=== PATIENT | male | born 1965 | race Caucasian/White ===

== ENCOUNTER 2017-07-27 09:28 | Observation (INO) | payer BC, OTHER, SELFPAY ==
[2017-07-27] VITALS (11 sets, daily range): BP systolic 132–158; BP diastolic 43–95; PULSE 58–101; RESP 12–20; TEMP 36.7–37; O2SAT 94–98; BMI 35.6; BMI 34.4
--- NOTE | 2017-07-27 09:43 | EKG12_ITS ---
Test Reason : CP Blood Pressure : / mmHG Vent. Rate : 078 BPM Atrial Rate : 078 BPM P-R Int : 160 ms QRS Dur : 078 ms QT Int : 374 ms P-R-T Axes : 019 023 -16 degrees QTc Int : 426 ms Normal sinus rhythm Normal ECG Confirmed by REED SANCHEZ ([id number]), deputy editor in chief MIRNA SANABRIA ([id number]) on 08/09/2017 5:10:38 PM Referred By: KEEGAN/SONG Confirmed By:REED SANCHEZ
--- NOTE | 2017-07-27 09:43 | RAD_ITS ---
STUDY: X-RAY CHEST REASON FOR EXAM: Male, 52 years old. Chest pain TECHNIQUE: Single AP portable view of the chest. COMPARISON: None. FINDINGS: The lungs are clear and expanded. There is no demonstrated pleural abnormality. Normal size heart. Normal mediastinum and dylan. Normal visualized pulmonary arteries. Normal visualized aortic arch and descending thoracic aorta. Normal visualized thoracic spine. Normal visualized ribs, clavicles, and shoulders. There is no demonstrated abnormality of the visualized soft tissue structures of the upper abdomen. RAD/Chest 1 View (Portable) IMPRESSION: No acute disease is demonstrated. Electronically Signed: Delma Menezes MD at 10:05 EDT , Service support ,
--- NOTE | 2017-07-27 09:44 | ED.VISSUMM ---
- ER Visit Summary Date of Service: 07/27/17 Chief Complaint: Chest pain History of Present Illness: The patient is a 52 M presenting with chest pain. This started around 5 AM. He states he had woken up and when he rolled over he started to have chest pain in his mid chest. At its worst pain is 6 out of 10 currently 2 out of 10. He states it waxes and wanes. His pain is in his mid chest and goes to his back. He denies nausea, vomiting, diaphoresis. He has mild shortness of breath. He scheduled for a stress test this coming Wednesday due to episodes of dizziness at work that was ordered by his primary care physician. He is unsure if his mom had history of blood clot, no other DVT/PE risk factors. He is a previous smoker. Physical Examination: Vitals are stable. Patient is afebrile. Alert no acute distress. HEENT exam is unremarkable. Neck is supple. Lungs are clear and equal bilaterally. Heart is regular rate and rhythm. Abdomen is soft nontender nondistended. Extremities are unremarkable. Skin is warm and dry. No focal neurologic deficit. Remainder of exam is unremarkable. Emergency Department Course and Treatment: EKG is sinus rate of 78 with no acute ischemic changes. Patient was given aspirin. Chest x-ray shows no acute process. CBC, chemistries, d-dimer are unremarkable. Troponin is negative. Patient is pain-free on reevaluation. Will discuss with the hospitalist for observation. Disposition: Observation Impression: Chest pain This note was generated with [employer] dictation software. It may contain incorrect words, spelling, and punctuation that were not noted in review of the chart prior to signing ED Disposition - Plan for ED Patient: Disposition: Acute Care Hospital [facility] Chief Complaint: Chest Pain
--- NOTE | 2017-07-27 09:47 | ED.DCSUM_ITS ---
- ER Visit Summary Date of Service: 07/27/17 Chief Complaint: Chest pain History of Present Illness: The patient is a 52 M presenting with chest pain. This started around 5 AM. He states he had woken up and when he rolled over he started to have chest pain in his mid chest. At its worst pain is 6 out of 10 currently 2 out of 10. He states it waxes and wanes. His pain is in his mid chest and goes to his back. He denies nausea, vomiting, diaphoresis. He has mild shortness of breath. He scheduled for a stress test this coming Wednesday due to episodes of dizziness at work that was ordered by his primary care physician. He is unsure if his mom had history of blood clot, no other DVT/PE risk factors. He is a previous smoker. Physical Examination: Vitals are stable. Patient is afebrile. Alert no acute distress. HEENT exam is unremarkable. Neck is supple. Lungs are clear and equal bilaterally. Heart is regular rate and rhythm. Abdomen is soft nontender nondistended. Extremities are unremarkable. Skin is warm and dry. No focal neurologic deficit. Remainder of exam is unremarkable. Emergency Department Course and Treatment: EKG is sinus rate of 78 with no acute ischemic changes. Patient was given aspirin. Chest x-ray shows no acute process. CBC, chemistries, d-dimer are unremarkable. Troponin is negative. Patient is pain-free on reevaluation. Will discuss with the hospitalist for observation. Disposition: Observation Impression: Chest pain This note was generated with [employer] dictation software. It may contain incorrect words, spelling, and punctuation that were not noted in review of the chart prior to signing ED Disposition - Plan for ED Patient: Disposition: Acute Care Hospital [facility] Chief Complaint: Chest Pain
[2017-07-27 10:14] LABS: Absolute Lymphocyte Count 2.76 X10^3/ul (0.83-4.51); Absolute Neutrophil Count 4.5 X10^3/uL (2.0-7.7); Basophil# 0.02 X10^3/uL; Basophil% 0.3 % (0-1); Eosinophil# 0.22 X10^3/uL; Eosinophils% 2.8 % (0-5); Hematocrit 47.4 % (40-54); Hemoglobin 16.2 g/dl (13.0-16.5); Lymphocyte # 2.76 X10^3/ul (4.0); Lymphocyte % 34.6 % (19-41); Mean Corp Hgb Conc 34.2 g/gl (32-36); Mean Corpuscular Hgb 29.3 pg (27.0-32.0); Mean Corpuscular Volume 85.7 fL (80-94); Mean Platelet Vol. 9.6 fl (6.2-12.0); Monocyte# 0.51 X10^3/uL; Monocyte% 6.4 % (0-10); Neutrophil # 4.45 X10^3/uL (2.7-7.7); Neutrophil % 55.8 % (47-70); Platelet Count 236 K/mm3 (150-450); RBC Distribution Width CV 13.9 % (11.6-14.6); RBC Distribution Width SD 43.6 fl (35.1-43.9); Red Blood Count 5.53 M/mm3 (4.6-6.2)
[2017-07-27 10:22] LABS: POSITIVE COUNT NO; POSITIVE DIFFERENTIAL NO; POSITIVE MORPHOLOGY NO
[2017-07-27 10:27] LABS: Anion Gap 7 (5-15); BUN 14 mg/dL (7-18); BUN/Creat Ratio 15.6 RATIO (10-20); Calcium,Total 9.1 mg/dL (8.5-10.1); Chloride 109 mmol/L (98-107); EST Glomerular Filtration Rate 95 mL/min (>60); Est Glom Filt Rate - Afr Amer 115 mL/min (>60); Estimated Creatinine Clearance 103.42 ml/min; Glucose 143 mg/dL (74-106); Potassium 4.1 mmol/L (3.5-5.1); Sodium Level 140 mmol/L (136-145)
[2017-07-27 10:28] LABS: D-Dimer Quantitative (DVT/PE) < 0.27 FEU/ug/m (0.27-0.49)
--- NOTE | 2017-07-27 14:59 | PCM.HP.STD ---
History of Present Illness Date of Admission: 07/27/17 Chief Complaint: Chest pain The patient is a 52 year old M presented to the emergency room with midsternal chest pain which he rated as 6/10 at it was. His pain is worse with respiratory movements. He denies any shortness of breath, palpitations or rapid heartbeat.He scheduled for a stress test this coming Wednesday due to episodes of dizziness at work that was ordered by his primary care physician, he denies dizziness. His workup in the emergency room is essentially unremarkable , we are placing him in the hospital to rule out acute coronary syndrome and go from there. Past Medical History Allergies benzonatate [From [employer]] Allergy (Verified 07/27/17 09:32) Hives Home Medications: Ambulatory Orders Medication Instructions Recorded Aspirin [Adult Low Dose Aspirin EC] 81 mg PO DAILY 07/27/17 Loratadine [Claritin] 10 mg PO DAILY 07/27/17 Multivitamins,Therapeutic 1 tablet PO DAILY 07/27/17 [Multivitamin] Smoking Status: Former smoker Review of Systems Constitutional: Reports: Anorexia Comment: All Systems were reviewed with pertinent positives mentioned in the HPI above. VTE Information - Inpt Only VTE Present on Admission: No VTE Mechan Device Prophylaxis: SCD's VTE Pharm Prophylaxis ordered?: No - Physical Exam General: Alert, Oriented x3 Neck: No JVD Lungs: Clear to auscultation, No rales Cardiovascular: Normal S1, Normal S2 Abdomen: Bowel Sounds Present, Soft, Non Tender Extremities: No clubbing, Clubbing Musculoskeletal: No Tenderness to Palpation of Joints or Extremities Vital Signs Temp Pulse Resp BP Pulse Ox 98.0 F 72 18 140/86 H 96 07/27/17 12:18 07/27/17 12:39 07/27/17 12:18 07/27/17 12:19 07/27/17 12:18 Oxygen Delivery Method Room Air Weight: 112 kg Body Mass Index (BMI) 34.4 Laboratory Tests Past 24 Hrs 07/27/17 13:15 Troponin I < 0.015 Assessment/Plan 1. Chest pain; will obtain serial cardiac enzymes and EKGs to rule out acute coronary syndrome, assuming negative cardiac enzymes we will schedule for a stress test in the morning. 2. hyperglycemia; will obtain fasting glucose in a.m. 3. Early ambulation for DVT prophylaxis. Code Visit OBSV E&M: 09172 Initial observation care L2
[2017-07-28] VITALS (8 sets, daily range): BP systolic 108–162; BP diastolic 62–89; PULSE 75–93; RESP 16–18; TEMP 36.4–36.6; O2SAT 96–98
[2017-07-28] MEDS: Aspirin E.C. 81 MG Tablet PO (05:48)
[2017-07-28] MEDS: 0.9% NaCl Peripheral Flush Adult/Peds IV (05:51)
[2017-07-28 06:02] LABS: Absolute Neutrophil Count 4.5 X10^3/uL (2.0-7.7); Basophil# 0.04 X10^3/uL; Basophil% 0.4 % (0-1); Eosinophil# 0.37 X10^3/uL; Hematocrit 46.4 % (40-54); Lymphocyte % 38.2 % (19-41); Mean Corp Hgb Conc 34.5 g/gl (32-36); Mean Corpuscular Hgb 29.4 pg (27.0-32.0); Mean Corpuscular Volume 85.3 fL (80-94); Monocyte# 0.72 X10^3/uL; Monocyte% 7.9 % (0-10); Neutrophil # 4.52 X10^3/uL (2.7-7.7); Neutrophil % 49.3 % (47-70); Platelet Count 279 K/mm3 (150-450); RBC Distribution Width CV 14.2 % (11.6-14.6); RBC Distribution Width SD 44.6 fl (35.1-43.9); Red Blood Count 5.44 M/mm3 (4.6-6.2); White Blood Count 9.2 K/mm3 (4.4-11.0)
[2017-07-28 06:06] LABS: Prothrombin Time (Protime)PT. 13.4 SECONDS (11.7-14.9)
[2017-07-28 06:07] LABS: Partial Thromboplast Time 27.6 Seconds (24.1-36.2)
[2017-07-28 06:10] LABS: POSITIVE COUNT NO; POSITIVE DIFFERENTIAL NO; POSITIVE MORPHOLOGY NO
[2017-07-28 06:22] LABS: Anion Gap 8 (5-15); BUN 15 mg/dL (7-18); BUN/Creat Ratio 16.8 RATIO (10-20); Calcium,Total 8.3 mg/dL (8.5-10.1); Chloride 108 mmol/L (98-107); EST Glomerular Filtration Rate 95 mL/min (>60); Est Glom Filt Rate - Afr Amer 115 mL/min (>60); Estimated Creatinine Clearance 103.42 ml/min; Glucose 117 mg/dL (74-106); Sodium Level 140 mmol/L (136-145)
--- NOTE | 2017-07-28 10:24 | STRESSREP ---
Stress Test Report Date: 07/28/2017 Procedure: Exercise tolerance test/imaging study Indications: Chest pain Consent: Per the patient Procedure: The patient exercised on a Roberth protocol for 5 minutes 30 seconds completing Stage I and 2 minutes 30 seconds of Stage II achieving a peak heart rate of 150 bpm (88 % predicted maximal heart rate) with a peak blood pressure 190/96 mmHg and a peak MET capacity of 7 METs. The baseline ECG demonstrated normal sinus rhythm. The peak exercise ECG demonstrated no obvious ECG changes. There were no cardiac dysrhythmias pretest, during exercise, or recovery. The functional capacity was considered average. There was no complaint of chest discomfort during exercise or recovery. The examination was discontinued secondary to dyspnea. Impression: 1. Technically adequate (percent predicted maximal heart rate greater than 85%) exercise tolerance test 2. Peak exercise ECG with no obvious ECG changes 3. Were no cardiac dysrhythmias pretest, during exercise, or recovery. 4. Nuclear images pending Myocardial perfusion imaging study: Technique: The patient was injected with 14.7 mCi of technetium 99m Cardiolite and subsequently rest SPECT Cardiolite nuclear imaging was obtained in the horizontal long, vertical long, and short axis views. The patient exercised on a Roberth protocol for 5 minutes and 30 seconds completing Stage I and 2 minutes 30 seconds of Stage II achieving a peak heart rate of 150 bpm (88 % predicted maximal heart rate) with a peak blood pressure 190/96 mmHg and a peak MET capacity of 7 METs. The patient was injected with 44.8 mCi of technetium 99m Cardiolite and subsequently stress SPECT Cardiolite nuclear imaging was obtained in the horizontal long, vertical long, and short axis views. A gated Cardiolite study at peak stress was obtained. Interpretation: Rest and stress SPECT Cardiolite nuclear imaging status post realignment, normalization, and attenuation correction, demonstrates the appearance of relative uniform tracer uptake and myocardial perfusion appearing within normal limits. There is end systolic thickening and brightening. The gated Cardiolite study demonstrates myocardial thickening and inward wall motion. The reported LVEF is in the 73 %. Impression: 1. Rest and stress SPECT Cardiolite nuclear imaging demonstrate relative uniform tracer uptake and myocardial perfusion appearing within normal limits. 2. The gated Cardiolite study reports an LVEF of 73 %. This note was generated with plistaation software. It may contain incorrect words, spelling, and punctuation that were not noted in checking the note before signing.
--- NOTE | 2017-07-28 10:34 | STRESSREP_ITS ---
Stress Test Report Date: 07/28/2017 Procedure: Exercise tolerance test/imaging study Indications: Chest pain Consent: Per the patient Procedure: The patient exercised on a Roberth protocol for 5 minutes 30 seconds completing Stage I and 2 minutes 30 seconds of Stage II achieving a peak heart rate of 150 bpm (88 % predicted maximal heart rate) with a peak blood pressure 190/96 mmHg and a peak MET capacity of 7 METs. The baseline ECG demonstrated normal sinus rhythm. The peak exercise ECG demonstrated no obvious ECG changes. There were no cardiac dysrhythmias pretest, during exercise, or recovery. The functional capacity was considered average. There was no complaint of chest discomfort during exercise or recovery. The examination was discontinued secondary to dyspnea. Impression: 1. Technically adequate (percent predicted maximal heart rate greater than 85% ) exercise tolerance test 2. Peak exercise ECG with no obvious ECG changes 3. Were no cardiac dysrhythmias pretest, during exercise, or recovery. 4. Nuclear images pending Myocardial perfusion imaging study: Technique: The patient was injected with 14.7 mCi of technetium 99m Cardiolite and subsequently rest SPECT Cardiolite nuclear imaging was obtained in the horizontal long, vertical long, and short axis views. The patient exercised on a Roberth protocol for 5 minutes and 30 seconds completing Stage I and 2 minutes 30 seconds of Stage II achieving a peak heart rate of 150 bpm (88 % predicted maximal heart rate) with a peak blood pressure 190/96 mmHg and a peak MET capacity of 7 METs. The patient was injected with 44.8 mCi of technetium 99m Cardiolite and subsequently stress SPECT Cardiolite nuclear imaging was obtained in the horizontal long, vertical long, and short axis views. A gated Cardiolite study at peak stress was obtained. Interpretation: Rest and stress SPECT Cardiolite nuclear imaging status post realignment, normalization, and attenuation correction, demonstrates the appearance of relative uniform tracer uptake and myocardial perfusion appearing within normal limits. There is end systolic thickening and brightening. The gated Cardiolite study demonstrates myocardial thickening and inward wall motion. The reported LVEF is in the 73 %. Impression: 1. Rest and stress SPECT Cardiolite nuclear imaging demonstrate relative uniform tracer uptake and myocardial perfusion appearing within normal limits. 2. The gated Cardiolite study reports an LVEF of 73 %. This note was generated with [employer] software. It may contain incorrect words, spelling, and punctuation that were not noted in checking the note before signing.
--- NOTE | 2017-07-28 12:32 | MRI_ITS ---
STUDY: MRI BRAIN WITHOUT CONTRAST REASON FOR EXAM: Male, 52 years old. Vertigo and dizziness TECHNIQUE: Standardized multiplanar fat and water weighted pulse sequences were obtained. COMPARISON: None. FINDINGS: Normal size of the ventricles and extra-axial spaces for the patient's age. Minor periventricular white matter ischemic changes without mass effect or restricted diffusion.. Normal bilateral basal ganglia. Normal thalami. There is no extra-axial fluid accumulation. Normal flow voids within the major intracranial circulation suggesting patency by spin echo criteria. Normal sella turcica, pituitary gland, infundibular stalk, optic chiasm and hypothalamus. Normal tectal plate and pineal gland. Normal midbrain, franco and medulla. Normal cerebellum. Normal basal cisterns. Normal bilateral temporal bones. Normal bilateral internal auditory canals. No demonstrated orbital abnormality, within the constraints of a routine brain study. Normal visualized paranasal sinuses. Normal calvarium and skull base. Normal visualized soft tissue structures. Normal visualized upper cervical spine. MRI/Brain without Contrast IMPRESSION: Minor periventricular white matter ischemic changes without evidence for acute infarct. Electronically Signed: Troy Jose MD at 16:20 EDT , Service support ,
--- NOTE | 2017-07-28 12:34 | MRI_ITS ---
STUDY: MRA NECK WITHOUT CONTRAST REASON FOR EXAM: Male, 52 years old. Dizziness and vertigo TECHNIQUE: Source images were obtained, MIPs were performed. The study was performed unenhanced. COMPARISON: None. FINDINGS: RIGHT CAROTID ARTERIES: Normal right common carotid artery (CCA). Normal right common carotid bulb. Normal origin of the right internal carotid (ICA) artery without a hemodynamically significant stenosis. Normal visualized cervical portion of the right internal carotid artery. Normal origin of the right external carotid artery (ECA). LEFT CAROTID ARTERIES: Normal left common carotid artery (CCA). Normal left common carotid bulb. Normal origin of the left internal carotid (ICA) artery without a hemodynamically significant stenosis. Normal visualized cervical portion of the left internal carotid artery. Normal origin of the left external carotid artery (ECA). VERTEBRAL ARTERIES: Normal antegrade flow within the bilateral vertebral artery without a hemodynamically significant stenosis. MRI/MRA Neck without Contrast IMPRESSION: Normal bilateral cervical carotid and vertebral arteries. Electronically Signed: Troy Jose MD at 16:23 EDT , Service support ,
--- NOTE | 2017-07-28 13:15 | MRI_ITS ---
STUDY: MRA OF THE HEAD WITHOUT CONTRAST REASON FOR EXAM: Male, 52 years old. Vertigo and dizziness TECHNIQUE: 3-D [id number]-[id number] (TOF) imaging was performed with MIPs. The study was performed unenhanced. COMPARISON: None. FINDINGS: Normal bilateral petrous carotid arteries. Normal right cavernous carotid artery with a normal supraclinoid bifurcation. Normal left cavernous carotid artery with a normal supraclinoid bifurcation. Normal right A1 segments of the anterior cerebral artery. Normal left A1 segments of the anterior cerebral artery. Anterior communicating artery is not visualized consistent with normal variant Normal bilateral A2 segments of the anterior cerebral arteries. Normal right M1 and M2 segments of the middle cerebral arteries, with a normal M1 bifurcation. Normal left M1 and M2 segments of the middle cerebral arteries, with a normal M1 bifurcation. Normal right posterior communicating artery (PCOM). Left posterior communicating arteries not visualized consistent with normal developmental variant. Normal bilateral vertebral arteries. Normal basilar artery with a normal basilar bifurcation. The visualized bilateral superior cerebellar (SCA) arteries are normal. Hypoplastic right posterior cerebral artery with vascular territory supplied by posterior communicating artery. Normal left posterior cerebral artery. There is no demonstrated aneurysm of the [place]. There is no major vessel occlusion or hemodynamically significant stenosis. There is no demonstrated abnormality of the visualized brain. MRI/MRA Head ONLY without Contrast IMPRESSION: Normal MRA of the head Electronically Signed: Troy Jose MD at 16:22 EDT , Service support ,
--- NOTE | 2017-07-28 16:41 | PCM.DC ---
You will use the following diet at home:: Cardiac Discharge Activity: Return to Normal Activity Allergies/Adverse Reactions: Allergies benzonatate [From [facility]] Allergy (Verified 07/27/17 09:32) Hives Medications to take at Discharge Aspirin [Adult Low Dose Aspirin EC] 81 mg PO DAILY 07/27/17 Loratadine [Claritin] 10 mg PO DAILY 07/27/17 Multivitamins,Therapeutic [Multivitamin] 1 tablet PO DAILY 07/27/17 Meclizine HCl [Antivert] 25 mg PO 4X/DAY PRN PRN #20 tab 07/28/17 The following prescriptions were given: Meclizine HCl [Antivert] 25 mg PO 4X/DAY PRN PRN #20 tab PRN Reason: Vertigo Primary Care Physician: Geovanny Moya III, MD [Primary Care Provider] - In 1 Week Proposed Discharge Date: 07/28/17
--- NOTE | 2017-07-28 16:42 | PCM.DC.SUM ---
Discharge Date and Diagnosis Date of Admission: 07/27/17 Date of Discharge: 07/28/17 Hospital Course and Treatment Imaging Results: 07/28/17 12:32 MRI Brain [Brain without Contrast] [MRI] Urgent 07/28/17 12:34 MRA Neck without Contrast [MRI] Urgent 07/28/17 13:15 MRA Head ONLY without Contrast [MRI] Urgent Summary of Care Provided: The patient is a 52 year old M presented to the emergency room with midsternal chest pain which he rated as 6/10 at it was. His pain is worse with respiratory movements. He denies any shortness of breath, palpitations or rapid heartbeat.He scheduled for a stress test this coming Wednesday due to episodes of dizziness at work that was ordered by his primary care physician, he denies dizziness. His workup in the emergency room is essentially unremarkable , he was placed in the progressive care unit and he rule out acute coronary syndrome with negative cardiac enzymes. He then underwent a stress test that was negative for ischemia. The patient did complain of significant dizziness while he was walking , orthostatic vital signs were unremarkable. He underwent MRI, MRA of the brain as well as MRA of the neck and these were unremarkable. The patient was therefore discharged home in stable condition and given a prescription for meclizine for his dizziness. Discharge Diet: No Restrictions Discharge Activity: Return to Normal Activity Home Medications: Medications to take at Discharge Aspirin [Adult Low Dose Aspirin EC] 81 mg PO DAILY 07/27/17 Loratadine [Claritin] 10 mg PO DAILY 07/27/17 Multivitamins,Therapeutic [Multivitamin] 1 tablet PO DAILY 07/27/17 Meclizine HCl [Antivert] 25 mg PO 4X/DAY PRN PRN #20 tab 07/28/17 Following Prescrptions Were Given to Patient: Meclizine HCl [Antivert] 25 mg PO 4X/DAY PRN PRN #20 tab PRN Reason: Vertigo Primary Care Physician: Geovanny Moya III, MD [Primary Care Provider] - In 1 Week Medical Necessity - Tobacco Use Smoking Status: Former smoker Meaningful Use Info Meaningful Use Diagnoses (Choose all that apply): None applicable Code Visit OBSV E&M: 86447 Observation care discharge
[2017-07-28] MEDS: Meclizine HCl 25 MG Tablet PO (17:26)
== END 2017-07-28 16:41 | disposition home or self-care (01) ==
LOC: ED 11:29 → PCU 11:31
PROVIDERS: Admitting Provider Internal Medicine; Emergency Provider Emergency Medicine; Family Provider Family Medicine; PCP Family Medicine; Visit Provider Internal Medicine
DX: R07.9 Chest pain, unspecified (principal); R42 Dizziness and giddiness; R06.02 Shortness of breath; R73.9 Hyperglycemia, unspecified; Z79.82 Long term (current) use of aspirin; Z87.891 Personal history of nicotine dependence
CPT/HCPCS: 36415; 70544; 70547; 70551; 71045; 78452; 80048; 84484; 85025; 85379; 85610; 85730; 93005; 93017; 99218; 99285; A9500; A4216; G0378

== ENCOUNTER 2020-06-09 11:03 | Emergency (ER) | payer OTHER, SELFPAY ==
[2020-06-09 11:05] VITALS: BP 125/67; PULSE 115; RESP 26; TEMP 38.1; O2SAT 92; BMI 37.8
[2020-06-09 11:07] VITALS: BP 125/67; PULSE 109; RESP 16; TEMP 38.1; O2SAT 93
--- NOTE | 2020-06-09 11:15 | RAD_ITS ---
STUDY: X-RAY CHEST REASON FOR EXAM: Male, 55 years old. covid, dyspnea w/ exertion TECHNIQUE: Single AP portable view of the chest. COMPARISON: 07/27/2017 FINDINGS: The lungs are clear and expanded. There is no demonstrated pleural abnormality. Normal size heart. Normal mediastinum and dylan. Normal visualized pulmonary arteries. Normal visualized aortic arch and descending thoracic aorta. Normal visualized thoracic spine. Normal visualized ribs, clavicles, and shoulders. There is no demonstrated abnormality of the visualized soft tissue structures of the upper abdomen. RAD/Chest 1 View (Portable) IMPRESSION: Normal x-ray examination of the chest. Electronically Signed: Papi Henry MD at 13:43 EDT Tel , Service support ,
[2020-06-09 11:21] VITALS: O2SAT 92
--- NOTE | 2020-06-09 11:26 | ED.DCSUM_ITS ---
History of Present Illness Chief Complaint: Fever Informant: Patient, Inspector Screen Printing Onset: Weeks - 1 Context: Gradual Onset Timing: Intermittent Quality: 104 this morning Current Severity: Mild Maximum Severity: Moderate Worsened by: Nothing in particular Relieved by: Ibuprofen taken earlier Associated Symptoms: See below Narrative: Patient along with his entire family have contracted Covid, he started having symptoms 1 week ago of nonproductive cough with occasional bronchospasm, myalgias, headaches, malaise, diarrhea, loss of appetite. No loss of taste or smell. No vomiting. No chest or abdominal pain. He has recently been developing some mild dyspnea with exertion. He has a pulse oximeter at home and he has been monitoring it, he states it has gradually decreased in the last several days, this morning it was at its lowest and he has been between 90 and 9 3% at home. The only reason he came to the ER this morning was because his temperature hit 104 for the first time and his called an ambulance. He got off of the EMS cot and walked to the bed. He states nothing else is different. He is a type II diabetic and has no other medical problems that he knows of. Patient states he is at the end of a course of prednisone which apparently his PCP prescribed him for this. - Past Medical History (1) Type 2 diabetes mellitus Status: Chronic Past Medical History - Allergies and Home Meds Allergies/Adverse Reactions: Allergies benzonatate [From Tessalalexia Perlgaby] Allergy (Verified 06/09/20 11:03) Hivgaby Primary Care Physician: Geovanny Moya III, MD [STAFF PHYSICIAN] - Lives: With Family Smoking Status: Unknown if ever smoked Review of Systems General: Reports: Chills, Fever, Malaise, Sweats Eyes: Denies: Visual changes - bilaterally, Diplopia ENT: Denies: Bilateral ear pain, Rhinorrhea, Sore throat Cardiovascular: Denies: Chest pain, Palpitations Respiratory: Reports: Cough, Dyspnea on exertion. Denies: Sputum, Orthopnea Gastrointestinal: Reports: Diarrhea. Denies: Abdominal pain, Nausea, Vomiting, Melena, Hematochezia Genitourinary: Denies: Dysuria, Hematuria, Frequency Musculoskeletal: Reports: Myalgias. Denies: Neck pain, Back pain, Swelling, Extremity Pain Skin: Denies: Rash, Wounds Neurological: Reports: Headache. Denies: Weakness, Numbness Physical Exam Vital Signs/Narrative: Vital Signs Temp Pulse Resp BP Pulse Ox 06/09/20 11:07 100.6 F H 109 H 16 125/67 H 93 06/09/20 11:05 100.6 F H 115 H 26 H 125/67 H 92 Inital Vital Signs reviewed: Yes General: Well nourished, Well developed, No Acute Distress Head: Normocephalic, Atraumatic Eyes: Perrl, EOMI ENT: Moist mucous membranes, No rhinorrhea Neck: Supple, Nontender, No lymphadenopathy Cardiovascular: Regular rate, Regular rhythm, No murmurs, Tachycardia Respiratory: No distress, CTA bilaterally, Chest nontender Abdomen: Soft, Nontender, Nondistended, Normal bowel sounds Back: Nontender, Normal Inspection Extremities: Nontender, No edema. Negative for: Calf Tenderness Skin: Normal color, No rash, No Trauma Neurological: Alert, Oriented x3, Cranial nerves II-XII grossly intact, Normal Strength, Normal Sensation, Normal Gait Psychological: Normal affect, Normal Mood Diagnostic/Tx/Re-eval - Medical Decision Making On my interpretation, 1 view chest x-ray shows small area on both lungs of probable developing infiltrate, but otherwise the x-ray looks excellent. Technically this is consistent with early Covid pneumonia. His pulse ox was 93% on room air, we walked him around the room and he did not drop. At the time of discussing with him prior to disposition he was given Tylenol for his fever and now his heart rate is 89 and his pulse ox is 95% on room air. He is feeling relatively well. I discussed with him that regarding the fever, all that is indicated his control by using ibuprofen and Tylenol alternating them so he is getting something every 3 hours. Otherwise he should rest, stay hydrated, continue checking his pulse ox for dropping below 90, but since he does not require oxygen right now and certainly does not require admission to the hospital, he is a candidate for the monoclonal antibody infusion. I discussed this with him, he is interested in it but also wanting to know if it will be covered by the [facility] which he will have to discuss with the hospital and the [facility]. I am not sure if they offer this service or not but we do. He was referred, since it is Wednesday they will probably call him tomorrow. ED Disposition - Plan for ED Patient: Disposition: Home or Assisted Living Diagnosis: Pneumonia due to COVID-19 virus Instructions: ED - COVID Monoclonal AB Infusion ... Referrals: Geovanny Moya III, MD [STAFF PHYSICIAN] - As Needed Additional Instructions: Continue checking your pulse oximetry at home, if you go below 90% for a significant amount of time despite resting, then return to the ER. If you are short of breath at rest and feel like you are getting worse you are also welcome to return for reevaluation. You should get a call tomorrow concerning the monoclonal antibody infusion treatment. Continue treating any fevers with Tylenol 1000 mg and/or ibuprofen 600 mg, you may alternate these and then take something every 3 or 4 hours.
[2020-06-09 12:30] VITALS: BP 121/71; PULSE 92; RESP 20; TEMP 37.4; O2SAT 93
[2020-06-09] MEDS: Acetaminophen 500 MG Tablet 1000 MG PO (12:30)
[2020-06-09 13:17] VITALS: BP 107/68; PULSE 94; RESP 24; TEMP 37.4; O2SAT 94
== END 2020-06-09 13:40 | disposition home or self-care (01) ==
PROVIDERS: Emergency Provider Emergency Medicine
DX: U07.1 COVID-19 (principal); J12.82 Pneumonia due to coronavirus disease 2019; E11.9 Type 2 diabetes mellitus without complications; Z79.899 Other long term (current) drug therapy
CPT/HCPCS: 71045; 87426; 99284

== ENCOUNTER 2020-06-10 14:32 | Emergency (ER) | payer OTHER, SELFPAY ==
[2020-06-09 11:05] VITALS: BMI 37.8
[2020-06-10] VITALS (9 sets, daily range): BP systolic 128–160; BP diastolic 69–86; PULSE 97–123; RESP 15–29; TEMP 36.9–37.6; O2SAT 90–97; BMI 34.3
--- NOTE | 2020-06-10 15:03 | EKG12_ITS ---
Test Reason : SOB Blood Pressure : / mmHG Vent. Rate : 102 BPM Atrial Rate : 102 BPM P-R Int : 150 ms QRS Dur : 078 ms QT Int : 326 ms P-R-T Axes : 042 031 -31 degrees QTc Int : 424 ms Sinus tachycardia Nonspecific ST and T wave abnormality Abnormal ECG Confirmed by ELISABETH KHAN, SUKHWINDER ([id number]), dictionary editor JORDYN TAVARES ([id number]) on 06/12/2020 11:20:30 AM Referred By: SONG Confirmed By:SUKHWINDER BARBER MD
--- NOTE | 2020-06-10 15:09 | ED.DCSUM_ITS ---
- ER Visit Summary Date of Service: 06/10/20 Chief Complaint: Shortness of breath. Covid History of Present Illness: The patient is a 55 M with shortness of breath. Patient states he began having Covid symptoms 1 week ago. He was tested 1 week ago and again yesterday and tested positive. His , daughter, daughter's boyfriend all tested positive as well. He has had cough, fever, headache, shortness of breath. He has loss of sense of taste and smell. He was seen in the ED at [facility] last week and again in [facility] ED last night. States his pulse ox has progressively continue to decrease at home. He called the monoclonal antibody screening today to get set up for this and was told to come to the ED due to low pulse ox. Physical Examination: Vitals are stable. Patient is afebrile. Alert no acute distress. HEENT exam is unremarkable. Neck is supple. Lungs are clear and equal bilaterally. Heart is regular rate and rhythm. Abdomen is soft nontender nondistended. Extremities are unremarkable. Skin is warm and dry. No focal neurologic deficit. Remainder of exam is unremarkable. Emergency Department Course and Treatment: EKG is sinus tachycardia rate of 102 with no acute ischemic changes. Chest x-ray read by myself and radiology shows bilateral infiltrates. CBC shows white count 4.0. Chemistries show sodium 134, potassium 3.3, glucose 113. AST 70, AST 94. Troponin is negative. Lactic acid is normal. D-dimer is 1.23. CTA chest was obtained and shows no evidence of pulmonary embolus. No aortic dissection or aneurysm. Peripheral groundglass infiltrates suggestive of atypical viral pneumonia. Fatty infiltration of liver. [facility] with the [facility] due to [facility]. They have accepted the patient and he will be transferred. Disposition: Transfer Impression: Covid pneumonia, hypoxia This note was generated with [employer] dictation software. It may contain incorrect words, spelling, and punctuation that were not noted in review of the chart prior to signing ED Disposition - Plan for ED Patient: [facility]errals: [facility] [Primary Care Provider] -
--- NOTE | 2020-06-10 15:12 | NURSING ---
CALLED [facility]. TALKED TO CAROLINE. SHE GAVE FAX NUMBER WHEN LABS, ETC ARE DONE. [phone]
--- NOTE | 2020-06-10 15:20 | RAD_ITS ---
STUDY: X-RAY CHEST REASON FOR EXAM: Male, 55 years old. Cough TECHNIQUE: Single AP portable view of the chest. COMPARISON: Comparison is made with prior study dated 06/09/2020. FINDINGS: EKG electrodes are seen. The infiltrate in the right upper lobe as well as in the right lower and left lower lobes. Follow-up is recommended. There is no demonstrated pleural abnormality. Normal size heart. Normal mediastinum and dylan. Normal visualized pulmonary arteries. Normal visualized aortic arch and descending thoracic aorta. Normal visualized thoracic spine. Normal visualized ribs, clavicles, and shoulders. There is no demonstrated abnormality of the visualized soft tissue structures of the upper abdomen. RAD/Chest 1 View (Portable) IMPRESSION: Bilateral pulmonary infiltrates. Electronically Signed: Guanaco Shrestha MD at 15:53 EDT , Service support ,
[2020-06-10 15:45] LABS: Absolute Lymphocyte Count 0.96 X10^3/uL (0.83-4.51); Absolute Neutrophil Count 2.9 X10^3/uL (2.0-7.7); Hematocrit 45.3 % (40-54); Lymphocyte # 0.96 X10^3/ul (4.0); Lymphocyte % 24.2 % (19-41); Mean Corp Hgb Conc 33.1 g/dL (32-36); Mean Corpuscular Hgb 28.9 pg (27.0-32.0); Mean Corpuscular Volume 87.3 fL (80-94); Monocyte# 0.11 X10^3/uL; Monocyte% 2.8 % (0-10); NRBC Flagged by Analyzer 0 % (0-5); Neutrophil # 2.89 X10^3/uL (2.7-7.7); Neutrophil % 72.7 % (47-70); POSITIVE MORPHOLOGY YES; Platelet Count 163 K/mm3 (150-450); RBC Distribution Width CV 13.7 % (11.6-14.6); RBC Distribution Width SD 44.3 fl (35.1-43.9); Red Blood Count 5.19 M/mm3 (4.6-6.2)
[2020-06-10 15:52] LABS: Differential Indicated SCAN CRITERIA MET
[2020-06-10 16:01] LABS: ALB/GLOB Ratio 0.7 RATIO (0.9-2.4); AST(SGOT) 94 U/L (15-37); Alanine Aminotransfer ALT/SGPT 70 U/L (16-61); Albumin, Serum 2.9 g/dL (3.2-5.0); Alkaline Phosphatase 62 U/L (45-117); Anion Gap 7 (5-15); BUN 18 mg/dL (7-18); Calcium,Total 7.9 mg/dL (8.5-10.1); Chloride 100 mmol/L (98-107); EST Glomerular Filtration Rate 83 mL/min (>60); Est Glom Filt Rate - Afr Amer 100 mL/min (>60); Estimated Creatinine Clearance 89.94 ml/min; Globulin 3.9 g/dL (2.2-4.2); Glucose 113 mg/dL (74-106); Potassium 3.3 mmol/L (3.5-5.1); Protein, Total 6.8 g/dL (6.4-8.2); Sodium Level 134 mmol/L (136-145)
[2020-06-10 16:11] LABS: Lactic Acid 1.8 mmol/L (0.4-1.9)
--- NOTE | 2020-06-10 16:18 | NURSING ---
FAXED CHART TO [facility]
--- NOTE | 2020-06-10 16:24 | NURSING ---
CALLED [facility]. TALKED TO TODD. EVERYTHING IS FAXED AND THE [employer] OFFICER WILL CALL US BACK.
[2020-06-10 16:36] LABS: Platelet Estimate ADEQUATE (ADEQ); Red Cell Morphology NORM C+C NORMAL (NORM C&C)
--- NOTE | 2020-06-10 16:42 | NURSING ---
[facility]ANI[facility], CALLED. SHE WILL REVIEW CHART. IF WE NEED TO ADMIT PATIENT IN OUR ER, WE NEED TO DO WHAT IS IN THE PATIEN'TS BEST INTEREST NOT SURE IF HE NEEDS AN ICU BED IF THEY HAVE ANY
[2020-06-10 16:44] LABS: D-Dimer Quantitative (DVT/PE) 1.23 FEU/ug/m (0.27-0.49)
--- NOTE | 2020-06-10 16:45 | CT_ITS ---
STUDY: CTA CHEST REASON FOR EXAM: Male, 55 years old. Elevated d-dimer. RADIATION DOSAGE (If Supplied By Facility): CTDIvol = ( 11.475 ) mGy, DLP = ( 565.97 ) mGycm TECHNIQUE: The examination was performed with the intravenous administration of IV 100mL Isovue-370. Post-processing of the angiographic images was performed, with multiplanar reformation and 3D reconstruction. Individualized dose optimization techniques were used for this CT. COMPARISON: Chest, 06/10/2020. FINDINGS: Normal enhancement of the main pulmonary artery and right and left pulmonary arteries. Normal enhancement of the bilateral peripheral pulmonary arteries. There is no demonstrated pulmonary embolism. Normal thoracic aorta and visualized great vessels. There is no demonstrated aortic dissection. Normal heart and pericardium. There are nonspecific subcentimeter paratracheal and prevascular lymph nodes. Normal hilar regions. Normal visualized trachea and bronchi. The lungs are well expanded. There is diffuse groundglass infiltrates in both upper lobes. Similar peripheral groundglass infiltrates are seen in the lower lobes most marked on the left. No focal consolidation. There is no mass. Normal pleura. Normal chest wall structures. Minimal degenerative changes of the lower thoracic spine. Fatty infiltration of the liver. Question small hiatal hernia. CT/CTA Chest W/WO Contrast IMPRESSION: 1. No evidence of pulmonary embolus. 2. No aortic dissection or aneurysm. 3. Peripheral groundglass infiltrates suggestive of atypical viral pneumonia. 4. Fatty infiltration of liver. Electronically Signed: Colten Gr DO at 17:48 EDT Tel [phone], Service support ,
[2020-06-10] MEDS: dexAMETHasone 4 MG Tablet 6 MG PO (17:29)
--- NOTE | 2020-06-10 18:11 | NURSING ---
ACCEPTED AT [facility] PCU UNIT NURSE TO NURSE [phone]
--- NOTE | 2020-06-10 18:22 | NURSING ---
CALLED [facility], ETA IS 2 HRS
--- NOTE | 2020-06-10 18:40 | ED.RN ---
rn attempted to call report for PCU at [facility]. RN there states he doesn't have an admission for this patient, rn was transferred to bed coordinator who confirms room assignment on PCU but needs RN to return call for report.
--- NOTE | 2020-06-10 20:12 | ED.RN ---
rn has not received return call to give report so a call was attempted with no answer.
--- NOTE | 2020-06-10 21:16 | ED.RN ---
PHYSICIANS CALLED FOR UPDATED ETA FOR TRANSPORT UNABLE TO GIVE AN ETA FOR TRANSPORT
--- NOTE | 2020-06-10 21:52 | ED.RN ---
rn call to give report again and see if transportation can be set up through [facility]. distribution supervisor of [employer] called back stating their two transports companies are unable to complete the transfer tonight and RN to call report once transportation is set up.
--- NOTE | 2020-06-10 22:56 | ED.RN ---
SPOKE WITH PHYSICIANS KELSI WAHL FROM [facility] FOR TRANSPORT AT THIS TIME
[2020-06-11 00:06] VITALS: BP 124/78; PULSE 101; RESP 22; O2SAT 93
--- NOTE | 2020-06-11 00:21 | ED.RN ---
rn report given to [facility] with no questions or concerns.
== END 2020-06-11 00:22 ==
LOC: ED 15:35
PROVIDERS: Emergency Provider Emergency Medicine
DX: U07.1 COVID-19 (principal); J12.82 Pneumonia due to coronavirus disease 2019; R09.02 Hypoxemia; E11.9 Type 2 diabetes mellitus without complications; Z79.82 Long term (current) use of aspirin; Z79.899 Other long term (current) drug therapy
CPT/HCPCS: 71045; 71275; 80053; 83605; 84484; 85025; 85379; 87040; 93005; 99285; A4216

== ENCOUNTER 2023-12-30 04:23 | Emergency (ER) | payer OTHER, SELFPAY ==
[2023-12-30] VITALS (7 sets, daily range): BP systolic 127–153; BP diastolic 71–75; PULSE 56–65; RESP 15–22; TEMP 36.6–36.7; O2SAT 93–97; BMI 35.4
--- NOTE | 2023-12-30 04:45 | EKG12_ITS ---
Test Reason : CP Blood Pressure : */* mmHG Vent. Rate : 58 BPM Atrial Rate : 58 BPM P-R Int : 162 ms QRS Dur : 84 ms QT Int : 438 ms P-R-T Axes : 24 9 -17 degrees QTcB Int : 429 ms Sinus bradycardia Low voltage QRS Inferior infarct , age undetermined Abnormal ECG Confirmed by ALLYSON KHAN, DARLING ([id number]), graphics editor JORDYN TAVARES ([id number]) on 12/31/2023 8:19:12 AM Referred By: ABEL Confirmed By: DARLING VALADEZ MD
--- NOTE | 2023-12-30 04:45 | CT_ITS ---
INDICATION: chest/back pain. ? Dissection EXAMINATION: CTA Chest and CTA Abdomen and Pelvis W/ Contrast Injection (and W/O Contrast Images if performed) TECHNIQUE: Helically acquired axial images were obtained of the chest, abdomen, and pelvis with sagittal and coronal reconstructed images. Individualized dose optimization techniques were used for this CT. IV contrast dosage and agent: 100 mL of Isovue-370. Oral contrast: None. COMPARISON: 06/10/2020 CT chest. FINDINGS: ---Chest: LUNGS, PLEURA AND LARGE AIRWAYS: No consolidation or edema. Right upper lobe calcified granuloma. No pleural effusion. No pneumothorax. Bilateral upper lobe blebs. THYROID: Unremarkable. HEART AND PERICARDIUM: No evidence of coronary artery calcification. No pericardial effusion. MEDIASTINUM AND ANDREW: No mediastinal or hilar adenopathy. Esophagus is unremarkable. No hiatal hernia. VESSELS: No thoracic aortic aneurysm or dissection. No pulmonary embolism. BONES: No acute abnormality. ---Abdomen/Pelvis: VESSELS: No abdominal aortic aneurysm or dissection. LIVER: No evidence of a mass. No intrahepatic or extrahepatic biliary duct dilation. Decreased attenuation of the liver which may represent fatty infiltration. GALLBLADDER: Small calcified stones. No evidence of cholecystitis. PANCREAS: No focal solid or cystic mass. No evidence of pancreatitis. SPLEEN: Normal. ADRENAL GLANDS: Normal. KIDNEYS AND URETERS: No urinary tract stone. No hydronephrosis or hydroureter. No significant asymmetric perinephric stranding. Simple left renal cyst with no follow-up recommended. URINARY BLADDER: Unremarkable. BOWEL: No evidence of diverticulosis or diverticulitis. Appendix appears normal. No evidence of bowel obstruction. REPRODUCTIVE ORGANS: No evidence of a pelvic mass. PERITONEUM: No intraabdominal free fluid or free air. LYMPH NODES: No pathologically enlarged mesenteric or retroperitoneal lymph nodes. ABDOMINAL WALL: Fat-containing right inguinal hernia. BONES: No acute abnormality. CT/CTA Chst, Abd, Pel W and/or WO IMPRESSION: 1. No thoracic or abdominal aortic aneurysm or dissection. 2. No pulmonary embolism. Electronically Signed: Troy Lara DO at 5:47 EDT ,
--- NOTE | 2023-12-30 04:48 | EX.ED.DYSGE1 ---
HPI History of Present Illness Chief Complaint: Chest Pain Informant: patient and spouse/S.O. Narrative Narrative: Patient is a 58-year-old male with past medical history of hypertension hyperlipidemia and [id number] diabetes. He states that he works on his feet all day and typically has back pain. He states he will take Tylenol and this helps reduce the pain and he is able to sleep through the night. He reports a few days ago he was pulling on a rope when it snapped and he fell and hit his butt/back. He states he did not think much of this and has been able to work and sleep per normal. He reports last night he noticed some back pain around bedtime which she normally has and took his Tylenol. He states that he was able to fall asleep for roughly an hour or so and then woke up with increased pain in the mid back that he states is shooting into his chest. He denies nausea vomiting diaphoresis or shortness of breath. He states that he tried more [id number] medication without any symptom improvement and therefore called EMS to be brought into the hospital for evaluation. He denies any recent travel surgery or history of DVT/PE [facility] Medical History (Updated 12/30/23 @ 06:[address] Joni Adams, DO) High cholesterol Hypertension Home Medications ?Medication ?Instructions ?Recorded ?Last Taken ?Type loratadine 10 mg tablet (Allergy 10 mg PO DAILY ALLERGIES 07/27/17 07/27/17 History Relief (loratadine)) 10 MG multivitamin with folic acid 400 1 tab PO DAILY SUPPLEMENT 07/27/17 07/27/17 History mcg tablet (Thera) 1 TABLET empagliflozin 25 mg tablet 25 mg PO DAILY 06/09/20 Unknown History atorvastatin 10 mg tablet 10 mg PO DAILY 12/30/23 Unknown History metformin 500 mg tablet 500 mg PO DAILY 12/30/23 Unknown History ondansetron 4 mg disintegrating 4 mg PO TID PRN nausea and 12/30/23 Unknown Rx tablet vomiting #21 tabs oxycodone-acetaminophen 5 mg-325 1 tab PO Q6H PRN pain 3 days #12 12/30/23 Unknown Rx mg tablet (Percocet) tabs sitagliptin 100 mg tablet 100 mg PO DAILY 12/30/23 Unknown History Allergy/AdvReac Type Severity Reaction Status Date / Time benzonatate (From Tessalon Allergy Hives Verified 12/30/23 04:23 Perles) metformin Allergy Diarrhea Verified 12/30/23 04:23 Social History Smoking Status: Former smoker ROS ROS ED Constitutional Constitutional ED: Denies chills or fever(s) Eyes Eyes: Denies blurry vision, change in vision or diplopia ENT ENT ED: Denies sore throat Cardiovascular Cardiovascular: Reports chest pain; Denies palpitations or racing heartbeat Respiratory/Chest Respiratory/Chest: Denies cough or dyspnea Gastrointestinal Gastrointestinal: Denies abdominal pain, diarrhea, nausea or vomiting Genitourinary Genitourinary ED: Denies dysuria Musculoskeletal Musculoskeletal: Reports back pain Integumentary Denies rash Neurologic Neurologic: Denies headache(s), paresthesias or weakness Hematologic/Lymphatic Hematologic/Lymphatic: Denies easy bleeding or easy bruising EXAM Physical Exam Const Vital Signs: 12/30/23 04:24 12/30/23 04:27 12/30/23 05:19 Temperature 98.0 F 98.0 F Temperature Source Oral Oral Pulse Rate 62 59 L Respiratory Rate 16 18 Respiratory Effort Normal Blood Pressure 153/74 H 153/74 H Blood Pressure Mean 100 100 Pulse Ox 96 96 Oxygen Delivery Method Room Air Room Air 12/30/23 05:23 12/30/23 05:27 12/30/23 06:00 Temperature 98 F Temperature Source Oral Pulse Rate 56 L 58 L 65 Respiratory Rate 22 H 22 H 15 Respiratory Effort Blood Pressure 131/74 H 131/74 H 127/71 H Blood Pressure Mean 93 93 89 Pulse Ox 95 95 97 Oxygen Delivery Method Room Air Room Air 12/30/23 06:35 Temperature Temperature Source Pulse Rate 57 L Respiratory Rate 15 Respiratory Effort Blood Pressure 133/75 H Blood Pressure Mean 94 Pulse Ox 93 Oxygen Delivery Method Positive well nourished, well developed and obese General Appearance ED: well developed; Negative for pallor Nutritional Appearance: obese HEENT HEENT Narrative: Normocephalic atraumatic Eyes PERRL and EOMs intact bilaterally General Eye ED: Negative for scleral icterus Neck supple Neck Narrative: No nuchal rigidity or meningeal signs No crepitance palpated Chest Wall palpation of chest normal Chest Narrative: No bony deformity or crepitance noted No reproducible pain with palpation Resp normal respiratory effort and clear to auscultation bilaterally Cardio regular rate and regular rhythm Rate: other Other Details: Heart is regular rate and rhythm without murmurs rubs or gallops Radial and carotid pulses are equal and symmetric No carotid bruit noted GI normal to inspection, nondistended, normoactive bowel sounds, non-tender, non-distended and no masses GI Narrative: No voluntary guarding or rigidity or pulsatile mass. No fluid wave Negative Austin sign Auscultation: normoactive bowel sounds Palpation: soft Back/Spine Back/Spine Narrative: No bony deformity or step-off of the thoracic or lumbar spine no midline tenderness to palpation Extremity normal to inspection Extremity Narrative: No asymmetric edema no pitting edema negative Homans' sign bilaterally Neuro oriented x3, CN's II-XII intact bilaterally and no sensory deficits noted Sensorium / Orientation: alert Motor Exam: strength 5/5 throughout Psych mental status grossly normal Skin no rashes or lesions noted and no wounds General Skin Exam: Negative for jaundice or pallor MDM MDM MDM Narrative Medical decision making narrative: Patient presented to the ER hypertensive but otherwise with stable vitals. He reported pain in his mid upper back that he states radiated through the chest . He did report a mild injury earlier in the week and therefore differential diagnosis is for thoracic compression fracture versus spinal thesis versus acute coronary syndrome versus cardiac dysrhythmia versus pneumonia versus pneumothorax versus pulmonary embolus versus dissection versus atypical biliary colic or acute cholecystitis or pancreatitis. Therefore basic labs as well as a CTA of the chest abdomen and pelvis were obtained. CTA revealed no sign of dissection or pulmonary embolus but did show multiple small calcified gallstones without findings of acute cholecystitis. The patient's EKG was sinus rhythm without signs of ischemia and his troponin was 4 going against ACS. Moreover he was in normal sinus rhythm without any type of dysrhythmia noted. Lipase is normal going against pancreatitis. CTA also did not show any type of lung pathology such as pneumonia or pneumothorax. CTA also did not reveal spinal cord injury such as compression fracture or spondylolisthesis. After 1 dose of morphine the patient had complete resolution of this pain. Therefore at this time as workup does not reveal signs of ACS or cardiac dysrhythmia dissection or pulmonary embolus and is workup is more consistent with biliary colic and he is pain-free without signs biliary colic I do not feel there is need for continued evaluation in the ER and he is otherwise safe for discharge History & Record Review Discussion w/independent historian: Patient and Significant other Lab Data Labs: Laboratory Results - last 24 hr 12/30/23 12/30/23 04:36 06:33 WBC 11.8 H RBC 5.36 Hgb 16.0 Hct 45.8 MCV 85.4 MCH 29.9 MCHC 34.9 RDW Std Deviation 42.8 RDW Coeff of Man 13.9 Plt Count 240 MPV 10.2 Immature Gran % (Auto) 0.300 Neut % (Auto) 70.4 H Lymph % (Auto) 22.6 [place] % (Auto) 5.3 Eos % (Auto) 1.1 Baso % (Auto) 0.3 Absolute Neuts (auto) 8.3 H Absolute Lymphs (auto) 2.67 Nucleated RBC % 0 PT 13.1 INR 1.0 APTT 26.9 Sodium 138 Potassium 3.4 L Chloride 108 H Carbon Dioxide 24.0 Anion Gap 6 BUN 21 H Creatinine 0.86 Estim Creat Clear Calc 122.38 Est GFR (MDRD) Af Amer 118 Est GFR (MDRD) Non-Af 98 BUN/Creatinine Ratio 24.5 H Glucose 174 H Calcium 8.5 Total Bilirubin 1.10 H Direct Bilirubin 0.27 AST 32 ALT 48 Alkaline Phosphatase 75 Troponin I High Sens 4 < 3 L Total Protein 7.1 Albumin 3.8 Globulin 3.3 Lipase 44 Radiography Diagnostic Testing: Clinical Impression(s) from Imaging Studies Chest/Abdomen/Pelvis CTA 12/30/23 04:45 IMPRESSION: 1. No thoracic or abdominal aortic aneurysm or dissection. 2. No pulmonary embolism. Electronically Signed: Laura Lara DO at 5:47 EDT Reading Location ID and State: [facility] / [place] Tel , Service support , Discharge Plan Triage Chief Complaint: Chest Pain ED Provider: Joni Adams Dx/Rx/DC Orders Clinical Impression: Cholelithiasis, Biliary colic, Type 2 diabetes mellitus, Hypertension, Hyperlipidemia Instructions: ED Gallstones with Biliary Colic Prescriptions: New oxycodone-acetaminophen [Percocet] 5-325 mg tablet 1 tab PO Q6H PRN (Reason: pain) 3 Days Qty: 12 0RF ondansetron 4 mg tablet,disintegrating 4 mg PO TID PRN (Reason: nausea and vomiting) Qty: 21 0RF No Action loratadine [Allergy Relief (loratadine)] 10 MG tablet 10 mg PO DAILY multivitamin with folic acid [Thera] 1 TABLET tablet 1 tab PO DAILY empagliflozin 25 MG tablet 25 mg PO DAILY sitagliptin 100 mg tablet 100 mg PO DAILY metformin 500 mg tablet 500 mg PO DAILY atorvastatin 10 mg tablet 10 mg PO DAILY Primary Care Provider: LAURA WHITING Referrals: [facility] [STAFF PHYSICIAN] - Activity Restrictions/Additional Instructions: Please follow-up with your family doctor to discuss a gallbladder ultrasound and/or HIDA scan to further assess your gallstones and potential need for gallbladder removal. Return to the ER should you have any further concerns or worsening of symptoms Print Language: Tajik Disposition Disposition: Home, Self Care
[2023-12-30 04:59] LABS: Absolute Lymphocyte Count 2.67 X10^3/uL (0.83-4.51); Absolute Neutrophil Count 8.3 X10^3/uL (2.0-7.7); Basophil# 0.04 X10^3/uL; Basophil% 0.3 % (0-1); Eosinophil# 0.13 X10^3/uL; Eosinophils% 1.1 % (0-5); Hematocrit 45.8 % (40-54); Lymphocyte # 2.67 X10^3/ul (0.83-4.51); Lymphocyte % 22.6 % (19-41); Mean Corp Hgb Conc 34.9 g/dL (32-36); Mean Corpuscular Hgb 29.9 pg (27.0-32.0); Mean Corpuscular Volume 85.4 fL (80-94); Mean Platelet Vol. 10.2 fl (6.2-12.0); Monocyte# 0.62 X10^3/uL; Monocyte% 5.3 % (0-10); NRBC Flagged by Analyzer 0 % (0-5); Neutrophil # 8.31 X10^3/uL (2.7-7.7); Neutrophil % 70.4 % (47-70); Platelet Count 240 K/mm3 (150-450); RBC Distribution Width CV 13.9 % (11.6-14.6); RBC Distribution Width SD 42.8 fl (35.1-43.9); Red Blood Count 5.36 M/mm3 (4.6-6.2); White Blood Count 11.8 K/mm3 (4.4-11.0)
[2023-12-30 05:13] LABS: Prothrombin Time (Protime)PT. 13.1 SECONDS (11.7-14.9)
[2023-12-30] MEDS: Morphine 4 MG/ML Syringe IV (05:13)
[2023-12-30 05:14] LABS: Partial Thromboplast Time 26.9 Seconds (24.1-36.2)
[2023-12-30] MEDS: Ondansetron 4 MG/2 ML Vial IV (05:14)
[2023-12-30] MEDS: 0.9% Normal Saline (500mL Bag) 500 ML 999 ML IV (05:14)
--- OUTSIDE RECORDS SUMMARY | 2023-12-30 05:33 | XMS RPT_ITS | CCD ---
Author Organization [facility] DOT NET ARCHITECT [facility] Results Test Name Value Interpretation Reference Range Facil ity ED NOTEon 06-05-2020 ED NOTE HNO ID: [id number] Author: Gabriella WinterRn) GUADALUPE Espinoza Service: Emergency Medicine Author Type: Registered Nurse Type: ED Notes Filed: 06/05/2020 8:40 PM Note Text: Pt given discharge instructions by . Pt ambulatory to lobby with steady gait. Normal [facility] ED NOTE HNO ID: [id number] Author: Opal WinterRn) GUADALUPE Leonard Service: Emergency Medicine Author Type: Registered Nurse Type: ED Notes Filed: 06/05/2020 7:11 PM Note Text: Radiology at bedside Normal [facility] ED NOTE HNO ID: [id number] Author: Jenn De La Cruz (Rn) GUADALUPE Kearney Service: ? Author Type: Registered Nurse Type: ED Notes Filed: 06/05/2020 5:51 PM Note Text: Pt states tested for covid on Wednesday due to exposure Symptoms began Wednesday night, cough, body aches and slight fever Positive results on Wednesday Today SOB with exertion, fever, dizziness Normal [facility] ED PROV NOTEon 06-05-2020 ED PROV NOTE HNO ID: [id number] Author: Mylene Dominguez DO Service: Emergency Medicine Author Type: Physician Type: ED Provider Notes Filed: 06/06/2020 4:51 AM Note Text: ED Provider Note Patient Name: Alfredo Ramos SERVICE DATE: 06/05/20 History Patient presents with: Covid19 Concern Cough Shortness of Breath Dizziness Fever 55-year-old male with past medical history significant for lur-sxruahx-ergteyker diabetes, obesity, hypertension, former tobacco use for 20 years?presenting for complaint of worsening shortness of breath, fevers as high as 102 ?F, fatigue, illness, persistent dry cough in the setting of known COVID-19 infection. Was exposed to a COVID-19 positive patient over the weekend, began having symptoms 2 days prior, Covid test positive yesterday. Has been using Tylenol at home, 1 g every 6 hours with persistent fevers. Reports his cough is dry, persistent and he has rib pain related to frequent coughing. He has been using Tylenol, Mucinex and hydrating with Gatorade and water at home. was concerned given persistent elevated temperatures, called his physician at the [place], who recommended he be evaluated by a physician. He denies pleuritic pain, leg swelling, chest pain, nausea, vomiting, diarrhea. He is tolerating p.o. PAST MEDICAL HISTORY Diagnosis Date - Diabetes (HCC) - Dizziness - Family history of coronary artery disease - Injury of right acromioclavicular joint 08/23/13 - Near syncope - Obesity - Parkinson disease (HCC) - Snoring - Syncope - Vitamin D deficiency PAST SURGICAL HISTORY Procedure Laterality Date - COLONOSCOP W/ OR W/O [facility] SPEC 10/26/2016 Colonoscopy - PAST SURGICAL HISTORY OF 1988 Hernia Right Inguinal - PAST SURGICAL HISTORY OF 2004 Exploratory Hernia on right-normal - PAST SURGICAL HISTORY OF right hip IT band lengthened FAMILY HISTORY Problem Relation Age of Onset - Diabetes Mother - Stroke Mother - Hypertension Mother - Heart Father [place] -age 65 - Diabetes Father - Hypertension Father - Cancer Paternal Grandmother - Ischemic Heart Disease Paternal Grandfather d. [place] - Ischemic Heart Disease Maternal Grandfather d. [place] in 40s Social History Tobacco Use - Smoking status: Former Smoker Packs/day: 1.00 Years: 18.00 Pack years: 18.00 Types: Cigarettes Quit date: 2002 Years since quittin.2 - Smokeless tobacco: Current User Types: Chew Vaping Use - Vaping Use: Never used Substance and Sexual Activity - Alcohol use: Yes Alcohol/week: 2.5 standard drinks Types: 1 Cans of Beer (12oz) per week Comment: occasional, <6 beers/month - Drug use: No - Sexual activity: Yes Partners: Female ALLERGIES Allergen Reactions - Metformin Diarrhea - Carmela Guallpa [Be* Hives Review of Systems Constitutional: Positive for chills, fatigue and fever. HENT: Negative for congestion, rhinorrhea, sinus pressure and sore throat. Eyes: Negative for photophobia and visual disturbance. Respiratory: Positive for cough and shortness of breath. Negative for chest tightness and wheezing. Cardiovascular: Negative for chest pain, palpitations and leg swelling. Gastrointestinal: Negative for abdominal distention, abdominal pain, constipation, diarrhea, nausea and vomiting. Genitourinary: Negative for decreased urine volume, difficulty urinating, dysuria, frequency, hematuria and urgency. Musculoskeletal: Positive for myalgias. Negative for arthralgias, back pain and neck pain. Skin: Negative for color change and rash. Neurological: Positive for headaches (Generalized, throbbing, with fevers). Negative for dizziness, weakness and light-headedness. Psychiatric/Behavioral: Negative for agitation and confusion. Physical Exam BP 164/90 Pulse 110 Temp (Src) 98.8 (Temporal Artery) Resp 17 Wt 260 lb (117.9kg) SpO2 95% O2 Therapy: Room Air Physical Exam Vitals and nursing note reviewed. Constitutional: General: He is not in acute distress. Appearance: He is well-developed. He is ill-appearing. He is not diaphoretic. Comments: Appearing but nontoxic middle-aged male. Occasional dry cough. Afebrile and hemodynamically stable but mildly tachycardic speaking in full sentences with no evidence of retractions, tachypnea, or respiratory compromise. HENT: Head: Normocephalic and atraumatic. Right Ear: External ear normal. Left Ear: External ear normal. Nose: Nose normal. Mouth/Throat: Mouth: Mucous membranes are moist. Pharynx: No oropharyngeal exudate. Eyes: General: Right eye: No discharge. Left eye: No discharge. Conjunctiva/sclera: Conjunctivae normal. Pupils: Pupils are equal, round, and reactive to light. Cardiovascular: Rate and Rhythm: Regular rhythm. Tachycardia present. Pulses: Radial pulses are 2+ on the right side and 2+ on the left side. Dorsalis pedis pulses are 2+ on the right side and 2+ on the left side. He (more content not included)... Normal [facility] XR CHEST 1V FRONTAL PORTon 0 06-05-2020 XR CHEST 1V FRONTAL PORT * * *Final Report* * * DATE OF EXAM: Jun 05 2020 7:16PM LDX [id number] - XR CHEST 1V FRONTAL PORT / PROCEDURE REASON: Acute respiratory illness * * * * Physician Interpretation * * * * EXAMINATION: CHEST RADIOGRAPH (SINGLE VIEW AP OR PA) Clinical History: Acute respiratory illness M: XC1_4 Comparison: May 05, 2017 and February 23, 2013 RESULT: Lines, tubes, and devices: EKG leads overlie the chest. Lungs and pleura: No consolidation. No lung mass. No pleural effusion. Cardiomediastinal silhouette: The cardiac silhouette is within normal limits. The thoracic aorta and mediastinum are unremarkable. Other: Thoracic spondylosis is present. IMPRESSION: No acute radiographic abnormality. Stable appearance to the chest as compared to the 2 previous exams. Manager Budget: PSCB Transcribe Date/Time: Jun 05 2020 7:21P Dictated by : ALDAIR QUINN MD This examination was interpreted and the report reviewed and electronically signed by: ALDAIR QUINN MD on Jun 05 2020 7:23PM EST [id number] Normal [facility] Progress note 01-10-2021 Note Date & Type Note Facility 01-10-2021 Note HNO ID: [id number] Author: Savanna Plasencia Population Health Navigator Service: ? Author Type: ? Type: Progress Notes Filed: 01/10/2021 2:01 PM Note Text: POPULATION HEALTH NAVIGATION OUTREACH Action/FYI I left a voice message re: pcp No care everywhere Contact made with patient or family member? NO Pt identified by name and : NO Outreach Outcome/Action Unable to reach patient: Left message Reason for Outreach Attribution: Provider Off-boarding Payer: Payor: [facility] / Plan: [facility] / Product Type: PPO / Care Gap Reviewed:: Reminder: Reminder note to check Health Maintenance for items below Health Maintenance items due: COVID-19 VACCINE(1) Never done HEPATITIS C SCREENING Never done HIV SCREENING Never done BP CONTROLLED (<130/80) Never done SHINGRIX VACCINE(1 of 2) Never done DEPRESSION SCREENING due on 09/03/2018 ANNUAL PCP TEAM CHRONIC DISEASE VISIT due on 10/29/2018 DIABETES SCREEN due on 10/29/2020 INFLUENZA(1) due on 10/30/2020 Advanced Directives Completed: Have you ever planned for future healthcare decisions with a power of admitted attorneys, living will, or advance directives? No. Please bring a copy to your next appointment or email to [email or web address] Referrals: N/A Message Sent to Practice: NO Navigation Signature: Savanna Tobar Shirin Population Health Navigator January 10, 2021 2:01 PM [facility] Clinical Note 01-10-2021 Note Date & Type Note Facility 01-10-2021 Note Patient Outreach (CLEMENTE FORTE) ALFREDO RAMOS ([id number]) 1965 M Date Time Provider Department 01/10/21 SAVANNA PLASENCIA During your visit today, we recorded the following information about you: Savanna Plasencia Population Health Navigator 01/10/2021 2:01 PM Signed POPULATION HEALTH NAVIGATION OUTREACH Action/FYI I left a voice message re: pcp No care everywhere Contact made with patient or family member? NO Pt identified by name and : NO Outreach Outcome/Action Unable to reach patient: Left message Reason for Outreach Attribution: Provider Off-boarding Payer: Payor: [facility] / Plan: [facility] / Product Type: PPO / Care Gap Reviewed:: Reminder: Reminder note to check Health Maintenance for items below Health Maintenance items due: COVID-19 VACCINE(1) Never done HEPATITIS C SCREENING Never done HIV SCREENING Never done BP CONTROLLED (<130/80) Never done SHINGRIX VACCINE(1 of 2) Never done DEPRESSION SCREENING due on 09/03/2018 ANNUAL PCP TEAM CHRONIC DISEASE VISIT due on 10/29/2018 DIABETES SCREEN due on 10/29/2020 INFLUENZA(1) due on 10/30/2020 Advanced Directives Completed: Have you ever planned for future healthcare decisions with a power of admitted attorneys, living will, or advance directives? No. Please bring a copy to your next appointment or email to Referrals: N/A Message Sent to Practice: NO Navigation Signature: Savanna Plasencia Population Health Navigator January 10, 2021 2:01 PM Allergies As of Date: 01/10/2021 Noted Allergy Reaction METFORMIN 06/05/2020 6 - Diarrhea TESSALON PERLES (BENZONATATE) 02/01/2012 4 - Hives Date Reviewed: 06/05/2020 Reviewed by: Jenn De La Cruz (Rn) GUADALUPE Kearney - Fully Assessed Reason for Visit: Population Health Navigation Outreach [[id number]] Cmt: Offboarding Prescriptions as of 01/10/2021 - empagliflozin (JARDIANCE) 10 mg tablet Take 5 mg by mouth daily with breakfast. - Ibuprofen 100 mg tablet Take 4 tablets by mouth every 6 hours as needed. - metformin HCl (METFORMIN ORAL) Take by mouth. - lisinopril (ZESTRIL, PRINIVIL) 10 mg tablet Take 1 tablet by mouth once daily. - aspirin, enteric coated (ASPIRIN, ENTERIC COATED) 81 mg EC tablet Take 81 mg by mouth once daily. - MULTIVITAMIN ORAL Take by mouth. - loratadine (CLARITIN) 10 mg tablet Take 1 tablet by mouth once daily. Problem List As Of Date 01/10/2021 Noted Resolved Enthesopathy of hip region [M76.899] 10/19/2006 06/03/2015 Obesity [E66.9] Plantar fasciitis [M72.2] 08/31/2011 07/20/2017 Family history of coronary artery disease [Z82.* Vitamin D deficiency [E55.9] Pain in joint, shoulder region [M25.519] 08/23/2013 07/20/2017 Injury of right acromioclavicular joint [S49.91*06/03/2015 07/20/2017 Acute gastritis without hemorrhage [K29.00] 10/15/2016 07/20/2017 Pain of right shoulder region [M25.511] 11/06/2016 07/20/2017 Macular degeneration [H35.30] 05/05/2017 Neck pain on right side [M54.2] 07/01/2017 Vertigo [R42] 08/11/2017 Hypertension, essential [I10] 10/29/2017 Encounter Status:Closed by SHIRIN POPULATION HEALTH NAVIGATOR, SAVANNA Tobar on 01/10/21 [facility] Progress note 05-27-2020 Note Date & Type Note Facility 05-27-2020 Note HNO ID: [id number] Author: Khurram Andrew MA Service: ? Author Type: Supervisor Show Operations Type: Progress Notes Filed: 05/27/2020 2:26 PM Note Text: Care Gap Reviewed: Follow-up appointment Phone call placed to patient. Pt identified by name and : NO Outreach Outcome/Action: Unable to reach patient: Left message If patient deferred or declined to schedule appointment, please indicate the reason(s): Other Khurram Andrew [facility] Clinical Note 05-27-2020 Note Date & Type Note Facility 05-27-2020 Note Patient Outreach (FA MPWS) ALFREDO RAMOS ([id number]) 1965 M Date Time Provider Department 05/27/20 KHURRAM ANDREW During your visit today, we recorded the following information about you: Khurram Andrew MA 05/27/2020 2:26 PM Signed Care Gap Reviewed: Follow-up appointment Phone call placed to patient. Pt identified by name and : NO Outreach Outcome/Action: Unable to reach patient: Left message If patient deferred or declined to schedule appointment, please indicate the reason(s): Khoa Andrew Allergies As of Date: 05/27/2020 Noted Allergy Reaction TESVADIMON PERLJOSE (BENZONATATE) 02/01/2012 4 - Hives Date Reviewed: 03/07/2020 Reviewed by: Joy Mcneal Ma - Fully Assessed Reason for Visit: Appointment [186] Cmt: HTN Prescriptions as of 05/27/2020 Sig: METFORMIN ORAL Take by mouth. LISINOPRIL 10 MG TABLET Take 1 tablet by mouth once d* Patient not taking: Reported on 03/05/2020 ASPIRIN 81 MG TABLET,DELAYED * Take 81 mg by mouth once sharon* IBUPROFEN 100 MG TABLET Take 100 mg by mouth every 6 * MULTIVITAMIN ORAL Take by mouth. LORATADINE 10 MG TABLET Take 1 tablet by mouth once d* Problem List As Of Date 05/27/2020 Noted Resolved Enthesopathy of hip region [M76.899] 10/19/2006 06/03/2015 Obesity [E66.9] Plantar fasciitis [M72.2] 08/31/2011 07/20/2017 Family history of coronary artery disease [Z82.* Vitamin D deficiency [E55.9] Pain in joint, shoulder region [M25.519] 08/23/2013 07/20/2017 Injury of right acromioclavicular joint [S49.91*06/03/2015 07/20/2017 Acute gastritis without hemorrhage [K29.00] 10/15/2016 07/20/2017 Pain of right shoulder region [M25.511] 11/06/2016 07/20/2017 Macular degeneration [H35.30] 05/05/2017 Neck pain on right side [M54.2] 07/01/2017 Vertigo [R42] 08/11/2017 Hypertension, essential [I10] 10/29/2017 Encounter Status:Closed by KHURRAM ANDREW MA on 05/27/20 [facility] Summary Purpose Family History No Family History Records FoundNo Family History Records Found Advance Directives No Advanced Directives Records FoundNo Advanced Directives Records Found Additional Source Comments (unrecognized sect ion and content) No Status Records FoundNo Status Records Found INFORMATION SOURCE (unrecogn ized section and content) DATE CREATED AUTHOR 06/06/2020 [facility] DATE CREATED AUTHOR AUTHOR'S ORGANIZ ATION 04/09/2021 [facility] FOR RECORDS PERTAINING TO PATIENTS WHO ARE OR HAVE BEEN ENROLLED IN A CHEMICAL DEPENDENCY/SUBSTANCEABUSE PROGRAM, SOME INFORMATION MAY BE OMITTED. This clinical summary was aggregated from multiple sources. Caution should be exercised in using it in the provision of clinical care. This summary normalizes information from multiple sources, and as a consequence, information in this document may materially change the coding, format and clinical context of patient data. In addition, data may be omitted in some cases. CLINICAL DECISIONS SHOULD BE BASED ON THE PRIMARY CLINICAL RECORDS. [facility]. provides no warranty or guarantee of the accuracy or completeness of information in this document.
[2023-12-30 05:52] LABS: AST(SGOT) 32 U/L (15-37); Alanine Aminotransfer ALT/SGPT 48 U/L (16-61); Albumin, Serum 3.8 g/dL (3.2-5.0); Alkaline Phosphatase 75 U/L (45-117); Anion Gap 6 (5-15); BUN 21 mg/dL (7-18); BUN/Creat Ratio 24.5 RATIO (10-20); Bilirubin, Direct 0.27 mg/dL (0.00-0.30); Calcium,Total 8.5 mg/dL (8.5-10.1); Chloride 108 mmol/L (98-107); Creatinine, Serum 0.86 mg/dL (0.70-1.30); EST Glomerular Filtration Rate 98 mL/min (>60); Est Glom Filt Rate - Afr Amer 118 mL/min (>60); Estimated Creatinine Clearance 122.38 ml/min; Globulin 3.3 g/dL (2.2-4.2); Glucose 174 mg/dL (74-106); Lipase 44 U/L (13-75); Potassium 3.4 mmol/L (3.5-5.1); Protein, Total 7.1 g/dL (6.4-8.2); Sodium Level 138 mmol/L (136-145)
[2023-12-30 06:02] LABS: Troponin-I HS 4 pg/mL (3.0-78.0)
[2023-12-30 06:56] LABS: Troponin-I HS < 3 pg/mL (3.0-78.0)
== END 2023-12-30 07:23 | disposition home or self-care (01) ==
PROVIDERS: Emergency Provider Emergency Medicine; PCP Nurse Practitioner Family; Visit Provider Emergency Medicine
DX: K80.70 Calculus of gallbladder and bile duct without cholecystitis without obstruction (principal); E11.9 Type 2 diabetes mellitus without complications; E78.00 Pure hypercholesterolemia, unspecified; I10 Essential (primary) hypertension; Z79.899 Other long term (current) drug therapy; Z79.84 Long term (current) use of oral hypoglycemic drugs; Z87.891 Personal history of nicotine dependence
CPT/HCPCS: 71275; 74174; 80048; 80076; 83690; 84484; 85025; 85610; 85730; 93005; 96361; 96374; 96375; 96376; 99284; J7040; A4216; J2405

== ENCOUNTER 2024-02-03 21:37 | Emergency (ER) | payer OTHER, SELFPAY ==
[2024-02-03 21:38] VITALS: PULSE 66; RESP 18; TEMP 36.7; O2SAT 99; BMI 36.0
--- NOTE | 2024-02-03 22:07 | EX.ED.DYSGE1 ---
HPI History of Present Illness Chief Complaint: Abd Pain Informant: patient and spouse/S.O. Narrative Narrative: Patient is 58-year-old male with past med history of hyperlipidemia and hwu-rczbjzg-wkstubsqm diabetes. He states that he is currently being worked up as an outpatient for gallbladder issues. He reports he has a HIDA scan tomorrow morning and was told that he should eat a greasy fatty diet this evening. He states he was following orders and then roughly 1 to 2 hours prior to arrival began with pain in the midepigastric to right upper quadrant of his abdomen. He states he took ubzh-nnu-unyetgp medications without any symptom improvement and secondary to this comes in for evaluation [facility] Medical History High cholesterol Hypertension Home Medications ?Medication ?Instructions ?Recorded ?Last Taken ?Type loratadine 10 mg tablet (Allergy 10 mg PO DAILY ALLERGIES 07/27/17 07/27/17 History Relief (loratadine)) 10 MG multivitamin with folic acid 400 1 tab PO DAILY SUPPLEMENT 07/27/17 07/27/17 History mcg tablet (Thera) 1 TABLET empagliflozin 25 mg tablet 25 mg PO DAILY 06/09/20 Unknown History atorvastatin 10 mg tablet 10 mg PO DAILY 12/30/23 Unknown History metformin 500 mg tablet 500 mg PO DAILY 12/30/23 Unknown History ondansetron 4 mg disintegrating 4 mg PO TID PRN nausea and 12/30/23 Unknown Rx tablet vomiting #21 tabs sitagliptin 100 mg tablet 100 mg PO DAILY 12/30/23 Unknown History Allergy/AdvReac Type Severity Reaction Status Date / Time benzonatate (From Tessalon Allergy Hives Verified 02/03/24 21:38 Ramu) metformin Allergy Diarrhea Verified 02/03/24 21:38 Surgical History (Updated 02/03/24 @ 21:42 by Levi Urrutia) H/O hernia repair Social History Smoking Status: Former smoker ROS ROS ED Constitutional Constitutional ED: Denies chills or fever(s) Eyes Eyes: Denies change in vision or diplopia ENT ENT ED: Denies rhinorrhea or sore throat Cardiovascular Cardiovascular: Denies chest pain, palpitations or racing heartbeat Respiratory/Chest Respiratory/Chest: Denies cough or dyspnea Gastrointestinal Gastrointestinal: Reports abdominal pain and nausea; Denies diarrhea or vomiting Genitourinary Genitourinary ED: Denies dysuria Musculoskeletal Musculoskeletal: Reports back pain Integumentary Denies rash Neurologic Neurologic: Denies headache(s) Hematologic/Lymphatic Hematologic/Lymphatic: Denies easy bleeding or easy bruising EXAM Physical Exam Const Vital Signs: 02/03/24 21:38 02/03/24 23:36 Temperature 98.1 F Temperature Source Oral Pulse Rate 66 86 Respiratory Rate 18 18 Blood Pressure 123/72 H Blood Pressure Mean 89 Pulse Ox 99 96 Oxygen Delivery Method Room Air Room Air Positive well nourished, well developed and obese General Appearance ED: well developed; Negative for pallor Nutritional Appearance: obese HEENT Reports moist mucous membranes HEENT Narrative: No signs of infection noted in the posterior pharynx Eyes PERRL and EOMs intact bilaterally General Eye ED: Negative for scleral icterus Neck supple and no JVD Resp normal respiratory effort and clear to auscultation bilaterally Cardio regular rate and regular rhythm Rate: other Other Details: Regular rate and rhythm without murmurs rubs or gallops Radial and carotid pulses are equal and symmetric GI non-distended and no masses GI Narrative: Obese soft nondistended with normal active bowel sounds. There is pain on palpation in the midepigastric and right upper quadrant region but greatest in the right upper quadrant. Negative Austin sign. No pulsatile mass. No peritoneal signs Auscultation: normoactive bowel sounds Palpation: soft Back/Spine no CVA tenderness Extremity normal to inspection Extremity Narrative: No asymmetric edema no pitting edema negative Homans' sign bilaterally Neuro oriented x3, CN's II-XII intact bilaterally and no sensory deficits noted Sensorium / Orientation: alert Motor Exam: strength 5/5 throughout Psych mental status grossly normal Skin no rashes or lesions noted, no wounds and skin turgor normal General Skin Exam: Negative for jaundice or pallor MDM MDM MDM Narrative Medical decision making narrative: Patient arrived to ER with stable vitals and reported right upper quadrant abdominal pain after eating greasy fatty foods. His history and exam is most consistent with biliary colic but in order to ensure he does not have acute cholecystitis versus pancreatitis a basic workup was ordered. Patient's white count is slightly elevated at 12.7 but this is most likely stress response as he is afebrile and normotensive. However in order to ensure he does not have pericholecystic fluid or gallbladder wall thickening ultrasound was obtained. Ultrasound confirmed gallstones but no gallbladder wall thickening or signs of acute pericholecystic fluid. Patient did have pain on exam with the ultrasound but his vitals and remaining laboratory studies as well as ultrasound do not correlate for acute infection. When patient returned from ultrasound he reported his pain was completely resolved. Vitals remained stable. Therefore at this time with resolution of pain and stable vitals and no signs of gallbladder wall thickening or acute pericholecystic fluid present there is no need to discuss case with general surgery or bring in for admission and he can follow-up as an outpatient as he has had scheduled. History & Record Review Discussion w/independent historian: Patient and Significant other Lab Data Attestation: I reviewed the patient's lab results. Labs: Laboratory Results - last 24 hr 02/03/24 21:42 WBC 12.7 H RBC 5.47 Hgb 16.3 Hct 46.8 MCV 85.6 MCH 29.8 MCHC 34.8 RDW Std Deviation 42.9 RDW Coeff of Man 13.8 Plt Count 268 MPV 10.0 Immature Gran % (Auto) 0.500 Neut % (Auto) 67.5 Lymph % (Auto) 23.8 Chase % (Auto) 6.5 Eos % (Auto) 1.3 Baso % (Auto) 0.4 Absolute Neuts (auto) 8.6 H Absolute Lymphs (auto) 3.01 Nucleated RBC % 0 Sodium 140 Potassium 3.2 L Chloride 103 Carbon Dioxide 28.0 Anion Gap 9 BUN 14 Creatinine 1.06 Estim Creat Clear Calc 100.12 Est GFR (MDRD) Af Amer 92 Est GFR (MDRD) Non-Af 76 BUN/Creatinine Ratio 13.2 Glucose 278 H Calcium 8.6 Total Bilirubin 1.90 H Direct Bilirubin 0.76 H AST 137 H ALT 111 H Alkaline Phosphatase 104 Total Protein 7.0 Albumin 3.6 Globulin 3.4 Lipase 54 Radiography Diagnostic Testing: Clinical Impression(s) from Imaging Studies Gallbladder Ultrasound 02/03/24 22:21 IMPRESSION: Multiple shadowing stones in the gallbladder. Positive sonographic Austin''s sign. Findings could indicate early evidence of acute cholecystitis in the appropriate clinical setting. Electronically Signed: Clayton Welch MD at 23:29 EST , Discharge Plan Triage Chief Complaint: Abd Pain ED Provider: Joni Adams Dx/Rx/DC Orders Clinical Impression: Cholelithiasis, Biliary colic, Type 2 diabetes mellitus, Hyperlipidemia Instructions: ED Gallstones with Biliary Colic Prescriptions: No Action loratadine [Allergy Relief (loratadine)] 10 MG tablet 10 mg PO DAILY multivitamin with folic acid [Thera] 1 TABLET tablet 1 tab PO DAILY empagliflozin 25 MG tablet 25 mg PO DAILY sitagliptin 100 mg tablet 100 mg PO DAILY metformin 500 mg tablet 500 mg PO DAILY atorvastatin 10 mg tablet 10 mg PO DAILY ondansetron 4 mg tablet,disintegrating 4 mg PO TID PRN (Reason: nausea and vomiting) Qty: 21 0RF Primary Care Provider: LAURA WHITING Referrals: LAURA WHITING CRNP [Primary Care Provider] - Activity Restrictions/Additional Instructions: Please keep your appointment for your HIDA scan tomorrow to further assess your gallbladder. Your history and exam indicate you are having recurrent gallbladder spasm secondary to gallstones. Talk to your surgeon about having your gallbladder removed in the meantime try to avoid greasy fatty foods to prevent recurrent spasms. If you have any further concerns or worsening of symptoms please return to the ER for repeat evaluation Print Language: Mohawk Disposition Disposition: Home, Self Care
[2024-02-03] MEDS: 0.9% Normal Saline (1000mL) 1,000 ML 999 ML IV (22:12)
[2024-02-03] MEDS: Morphine 4 MG/ML Syringe IV (22:13)
[2024-02-03 22:18] LABS: Absolute Lymphocyte Count 3.01 X10^3/uL (0.83-4.51); Absolute Neutrophil Count 8.6 X10^3/uL (2.0-7.7); Basophil# 0.05 X10^3/uL; Basophil% 0.4 % (0-1); Eosinophil# 0.17 X10^3/uL; Eosinophils% 1.3 % (0-5); Hematocrit 46.8 % (40-54); Hemoglobin 16.3 g/dL (13.0-16.5); Lymphocyte # 3.01 X10^3/ul (0.83-4.51); Lymphocyte % 23.8 % (19-41); Mean Corp Hgb Conc 34.8 g/dL (32-36); Mean Corpuscular Hgb 29.8 pg (27.0-32.0); Mean Corpuscular Volume 85.6 fL (80-94); Monocyte# 0.82 X10^3/uL; Monocyte% 6.5 % (0-10); NRBC Flagged by Analyzer 0 % (0-5); Neutrophil # 8.55 X10^3/uL (2.7-7.7); Neutrophil % 67.5 % (47-70); Platelet Count 268 K/mm3 (150-450); RBC Distribution Width CV 13.8 % (11.6-14.6); RBC Distribution Width SD 42.9 fl (35.1-43.9); Red Blood Count 5.47 M/mm3 (4.6-6.2); White Blood Count 12.7 K/mm3 (4.4-11.0)
--- NOTE | 2024-02-03 22:21 | US_ITS ---
EXAM: US ABDOMEN LIMITED, RIGHT UPPER QUADRANT CLINICAL INDICATION: RUQ pain TECHNIQUE: Real-time ultrasound of the right upper quadrant with image documentation. COMPARISON: No relevant prior studies available. FINDINGS: LIVER: Increased echogenicity of the hepatic parenchyma. No intrahepatic biliary ductal dilation. GALLBLADDER: Multiple shadowing stones in the gallbladder. Positive sonographic Austin''s sign. No gallbladder wall thickening is demonstrated. No pericholecystic fluid. COMMON BILE DUCT: 5 mm. The proximal common bile duct is within normal limits for the patient''s age. PANCREAS: The pancreatic tail is partially obscured by bowel gas. RIGHT KIDNEY: Unremarkable. There is no hydronephrosis. No shadowing calculus. No focal lesion or perinephric collection is demonstrated. US/Gallbladder IMPRESSION: Multiple shadowing stones in the gallbladder. Positive sonographic Austin''s sign. Findings could indicate early evidence of acute cholecystitis in the appropriate clinical setting. Electronically Signed: Clayton Welch MD at 23:29 EST ,
[2024-02-03 22:43] LABS: AST(SGOT) 137 U/L (15-37); Alanine Aminotransfer ALT/SGPT 111 U/L (16-61); Albumin, Serum 3.6 g/dL (3.2-5.0); Alkaline Phosphatase 104 U/L (45-117); Anion Gap 9 (5-15); BUN 14 mg/dL (7-18); BUN/Creat Ratio 13.2 RATIO (10-20); Bilirubin, Direct 0.76 mg/dL (0.00-0.30); Calcium,Total 8.6 mg/dL (8.5-10.1); Chloride 103 mmol/L (98-107); Creatinine, Serum 1.06 mg/dL (0.70-1.30); EST Glomerular Filtration Rate 76 mL/min (>60); Est Glom Filt Rate - Afr Amer 92 mL/min (>60); Estimated Creatinine Clearance 100.12 ml/min; Globulin 3.4 g/dL (2.2-4.2); Glucose 278 mg/dL (74-106); Lipase 54 U/L (13-75); Potassium 3.2 mmol/L (3.5-5.1); Sodium Level 140 mmol/L (136-145)
[2024-02-03 23:36] VITALS: BP 123/72; PULSE 86; RESP 18; O2SAT 96
[2024-02-03 23:37] VITALS: BP 123/72; PULSE 86; RESP 18; TEMP 36.7; O2SAT 96
== END 2024-02-03 23:41 | disposition home or self-care (01) ==
PROVIDERS: Emergency Provider Emergency Medicine; PCP Nurse Practitioner Family; Visit Provider Emergency Medicine
DX: K80.70 Calculus of gallbladder and bile duct without cholecystitis without obstruction (principal); E11.9 Type 2 diabetes mellitus without complications; E78.00 Pure hypercholesterolemia, unspecified; Z87.891 Personal history of nicotine dependence; Z79.899 Other long term (current) drug therapy; Z79.84 Long term (current) use of oral hypoglycemic drugs
CPT/HCPCS: 76705; 80048; 80076; 83690; 85025; 96361; 96374; 96376; 99285; A4216